=== PATIENT | male | born 1985 | race Two or more races ===

== ENCOUNTER 2019-02-13 12:40 | Emergency (ER) | payer SELFPAY ==
[~2019-02-13] VITALS: Ht 167.6 cm; Wt 96.8 kg
[~2019-02-13 12:40] MED LIST: CIPR-278 PO; HYDR-309 PO; METR-152 PO
[2019-02-13] MEDS ORDERED: ACET-66 PO (12:44)
[2019-02-13] MEDS ORDERED: IBUPROFEN 600 MG TABLET PO ONE (13:45)
[2019-02-13 16:58] VITALS: BP 143/78
== END 2019-02-13 17:00 | disposition home or self-care (01) ==
LOC: EMS 12:42
DX: M76.62 Achilles tendinitis, left leg (principal); Z88.0 Allergy status to penicillin

== ENCOUNTER 2019-02-14 15:10 | Emergency (ER) | payer SELFPAY ==
[~2019-02-14] VITALS: Ht 167.6 cm; Wt 98.6 kg
[~2019-02-14 15:10] MED LIST changes: +ACET-66 PO
[2019-02-14 15:11] VITALS: BP 139/80
== END 2019-02-14 17:46 | disposition home or self-care (01) ==
LOC: EMS 15:13
DX: R76.11 Nonspecific reaction to tuberculin skin test without active tuberculosis (principal); Z88.0 Allergy status to penicillin

== ENCOUNTER 2019-02-16 10:09 | Emergency (ER) | payer SELFPAY ==
[~2019-02-16] VITALS: Ht 175.3 cm; Wt 109.1 kg
[2019-02-16 10:11] VITALS: BP 133/85
== END 2019-02-16 12:15 | disposition left against medical advice (07) ==
LOC: EMS 10:10
DX: M79.632 Pain in left forearm (principal); F17.210 Nicotine dependence, cigarettes, uncomplicated; Z53.21 Procedure and treatment not carried out due to patient leaving prior to being seen by health care provider

== ENCOUNTER 2019-02-16 12:55 | Emergency (ER) | payer SELFPAY ==
[~2019-02-16] VITALS: Ht 175.3 cm; Wt 109.1 kg
[~2019-02-16 12:55] MED LIST changes: -CIPR-278 PO; -HYDR-309 PO; -METR-152 PO
[2019-02-16 14:25] VITALS: BP 123/79
[2019-02-16] MEDS: PRAMOXINE HCL/BENZYL ALCOHOL 1% 35 GM GEL TP ONE (14:34)
== END 2019-02-16 15:00 | disposition home or self-care (01) ==
LOC: EMS 12:56
DX: L30.9 Dermatitis, unspecified (principal); F17.210 Nicotine dependence, cigarettes, uncomplicated; Z88.0 Allergy status to penicillin; Z86.11 Personal history of tuberculosis